=== PATIENT | female | born 1980 | race Caucasian/White ===

== ENCOUNTER → 2021-12-14 | Day surgery (SDC) | payer BC ==
[~2021-12-14] MED LIST: Midazolam 1 MG/ML 2 ML SDV ONE; Propofol 200 MG/20 ML SDV ONE; fentaNYL 100 MCG/2 ML SDV ONE
== END ==
LOC: JP.SDS 06:00
PROVIDERS: ATTEND Surgery
DX: K91.89 Other postprocedural complications and disorders of digestive system (principal); E66.01 Morbid (severe) obesity due to excess calories; Z98.84 Bariatric surgery status
CPT/HCPCS: 43239; 81025; 87081; J2250; J2704; J3010

== ENCOUNTER 2022-01-29 05:00 | Inpatient (IN) | payer BC ==
[2022-01-29] MEDS ORDERED: Scopolamine 1.5 MG Transdermal Patch TOP SCH (05:45)
[2022-01-29] MEDS ORDERED: Celecoxib 200 MG Cap PO ONE (06:00)
[2022-01-29] MEDS ORDERED: Dextrose 5%-Lactated Ringers 1,000 ML IV SCH (06:00)
[2022-01-29] MEDS ORDERED: Acetaminophen 500 MG Tab PO ONE (06:00)
[2022-01-29 06:22] LABS: ESTIMATED GFR 112 mL/min (>60)
[2022-01-29] MEDS ORDERED: cefOXitin 1 GM Vial ONE (06:49)
[2022-01-29] MEDS ORDERED: Bupivacaine 0.5% 30 ML SDV ONE (06:49)
[2022-01-29] MEDS ORDERED: Lidocaine 1% with EPINEPHrine 1:100,000 50 ML MDV ONE (06:49)
[2022-01-29] MEDS ORDERED: Meropenem 500 MG SDV ONE (06:49)
[2022-01-29] MEDS ORDERED: cefOXitin 2 GM Vial ONE (06:50)
[2022-01-29] MEDS ORDERED: fentaNYL 250 MCG/5 ML SDV ONE ×2 (07:06→07:50)
[2022-01-29] MEDS ORDERED: Neostigmine Methylsulfate 1 MG/ML 5 ML Syringe ONE (07:07)
[2022-01-29] MEDS ORDERED: Ondansetron 4 MG/2 ML SDV ONE (07:07)
[2022-01-29] MEDS ORDERED: Dexamethasone 4 MG/ML SDV ONE (07:07)
[2022-01-29] MEDS ORDERED: Rocuronium 50 MG/5 ML Vial ONE ×2 (07:07→07:50)
[2022-01-29] MEDS ORDERED: Succinylcholine 200 MG/10 ML MDV ONE (07:07)
[2022-01-29] MEDS ORDERED: Glycopyrrolate 0.2 MG/ML 5 ML MDV ONE (07:07)
[2022-01-29] MEDS ORDERED: Propofol 200 MG/20 ML SDV ONE (07:07)
[2022-01-29] MEDS ORDERED: cefOXitin 2 GM in Sodium Chloride 0.9% 50 ML IV ONE (07:15)
[2022-01-29] MEDS ORDERED: Ketamine 500 MG/5 ML MDV IV SCH (07:30)
[2022-01-29] MEDS ORDERED: Ketamine 19 MG in Sodium Chloride 0.9% 19.81 ML IV SCH (07:30)
[2022-01-29] MEDS ORDERED: diphenhydrAMINE 25 MG Cap PO PRN (07:50)
[2022-01-29] MEDS ORDERED: Ondansetron 4 MG/2 ML SDV IVPUSH PRN ×2 (07:50→12:00)
[2022-01-29] MEDS ORDERED: diphenhydrAMINE 50 MG/ML SDV IVPUSH PRN ×2 (07:50→12:00)
[2022-01-29] MEDS ORDERED: Naloxone 0.4 MG/ML SDV IVPUSH PRN (07:50)
[2022-01-29] MEDS ORDERED: HYDROmorphone/Normal Saline 6 MG/30 ML PCA Vial IV PRN (07:50)
[2022-01-29] MEDS ORDERED: Lactated Ringers 1,000 ML ONE (08:07)
[2022-01-29] MEDS ORDERED: Ketoconazole 2% Crm 30 GM Tube ONE (09:28)
[2022-01-29] MEDS ORDERED: Cyclobenzaprine 10 MG Tab PO PRN (11:18)
[2022-01-29] MEDS ORDERED: hydrOXYzine HCL 100 MG/2 ML SDV IM PRN (12:00)
[2022-01-29] MEDS ORDERED: Metoclopramide 10 MG/2 ML SDV IVPUSH PRN (12:00)
[2022-01-29] MEDS ORDERED: Labetalol 20 MG/4 ML Syringe IVPUSH PRN (12:00)
[2022-01-29] MEDS ORDERED: Acetaminophen 500 MG Tab PO PRN (12:00)
[2022-01-29] MEDS ORDERED: Pantoprazole 40 MG Vial IVPUSH SCH (12:00)
[2022-01-29] MEDS: Dextrose 5%-Lactated Ringers 1,000 ML IV SCH ×2 (13:13→22:33)
[2022-01-29] MEDS: cefOXitin 2 GM in Sodium Chloride 0.9% 50 ML IV SCH ×2 (14:23→21:17)
[2022-01-29] MEDS: Acetaminophen 500 MG Tab PO SCH ×2 (15:31→21:18)
[2022-01-29] MEDS ORDERED: Benzocaine/Cetylpyridinium/Menthol Lozenge MUCMEM PRN (15:51)
[2022-01-29] MEDS ORDERED: MVI, Adult with Vitamin K 10 ML, Thiamine 200 MG, Zinc/Copper/Manganese/Selenium 1 ML i... IV SCH ×4 (16:00)
[2022-01-29] MEDS: Ketoconazole 2% Crm 30 GM Tube TOP SCH (16:06)
[2022-01-29] MEDS: Heparin Sodium 5,000 Units/ML Vial SUBCUT SCH (18:08)
[2022-01-30] MEDS: cefOXitin 2 GM in Sodium Chloride 0.9% 50 ML IV SCH ×4 (02:16→19:53)
[2022-01-30] MEDS ORDERED: Iopamidol 612 MG/ML 50 ML SDV PO STA (02:20)
[2022-01-30] MEDS: Dextrose 5%-Lactated Ringers 1,000 ML IV SCH ×2 (04:49→13:04)
[2022-01-30] MEDS: Acetaminophen 500 MG Tab PO SCH ×3 (05:41→21:03)
[2022-01-30] MEDS: Heparin Sodium 5,000 Units/ML Vial SUBCUT SCH ×2 (05:41→17:21)
[2022-01-30] MEDS ORDERED: Ondansetron 4 MG Tab.DIS PO PRN (07:39)
[2022-01-30] MEDS: Ketoconazole 2% Crm 30 GM Tube TOP SCH (09:31)
[2022-01-30] MEDS: SCOPOLAMINE PATCH CHECK TOP SCH (09:32)
[2022-01-30] MEDS: Celecoxib 200 MG Cap PO SCH ×2 (09:32→21:02)
[2022-01-30] MEDS: Pantoprazole 40 MG Delayed-Release Granules 1 Packet PO SCH (15:57)
[2022-01-30] MEDS ORDERED: MVI, Adult with Vitamin K 10 ML, Thiamine 200 MG, Zinc/Copper/Manganese/Selenium 1 ML i... IV SCH ×4 (16:00)
[2022-01-31] MEDS: cefOXitin 2 GM in Sodium Chloride 0.9% 50 ML IV SCH ×2 (02:07→07:32)
[2022-01-31] MEDS: Dextrose 5%-Lactated Ringers 1,000 ML IV SCH ×2 (02:08→13:20)
[2022-01-31] MEDS: Acetaminophen 500 MG Tab PO SCH (05:37)
[2022-01-31] MEDS: Heparin Sodium 5,000 Units/ML Vial SUBCUT SCH ×2 (05:37→17:20)
[2022-01-31] MEDS: HYDROmorphone 2 MG Tab PO PRN ×2 (08:35→15:42)
[2022-01-31] MEDS: Celecoxib 200 MG Cap PO SCH ×2 (08:36→20:54)
[2022-01-31] MEDS: SCOPOLAMINE PATCH CHECK TOP SCH (08:37)
[2022-01-31] MEDS: Ketoconazole 2% Crm 30 GM Tube TOP SCH (08:37)
[2022-01-31] MEDS: Bisacodyl 5 MG Tab PO SCH ×2 (08:37→20:54)
[2022-01-31] MEDS ORDERED: Cyanocobalamin (Vitamin B12) 1,000 MCG/ML SDV IM ONE (09:00)
[2022-01-31] MEDS: Acetaminophen Soln 650 MG/20.3 ML UD Cup PO SCH ×3 (15:33→22:30)
[2022-01-31] MEDS: Pantoprazole 40 MG Delayed-Release Granules 1 Packet PO SCH (17:20)
[2022-02-01] MEDS: HYDROmorphone 2 MG Tab PO PRN (04:26)
[2022-02-01] MEDS: Acetaminophen Soln 650 MG/20.3 ML UD Cup PO SCH (05:06)
[2022-02-01] MEDS: Heparin Sodium 5,000 Units/ML Vial SUBCUT SCH (05:07)
== END 2022-02-01 09:05 | disposition home or self-care (01) | DRG 220 ==
LOC: JP.SDSSCHI 05:00 → JP.MS 08:45
PROVIDERS: ADMIT Surgery; ATTEND Surgery
PROC: 0D150ZA Bypass Esophagus to Jejunum, Open Approach (ICD-10-PCS; principal; 2022-01-29)
PROC: 0DB80ZZ Excision of Small Intestine, Open Approach (ICD-10-PCS; 2022-01-29)
DX: K31.6 Fistula of stomach and duodenum (principal); E66.01 Morbid (severe) obesity due to excess calories; G35 Multiple sclerosis; K31.4 Gastric diverticulum; Z98.84 Bariatric surgery status; K55.9 Vascular disorder of intestine, unspecified; Z87.440 Personal history of urinary (tract) infections; D50.9 Iron deficiency anemia, unspecified; Z68.42 Body mass index [BMI] 45.0-49.9, adult
CPT/HCPCS: 36415; 74240; 74240-26; 80053; 82728; 83735; 84100; 84703; 85025; 86850; 86900; 86901; 88307; A9270-GY; C9113; J0171; J0330; J0694; J1100; J1170; J1644; J2185; J2405; J2704; J2710; J2795; J3010; J3411; J3420; J3490; J7120; J7121; Q9967